=== PATIENT | female | born 1990 | race African-American/Black ===

== ENCOUNTER 2022-03-01 14:50 | Outpatient (CLI) | payer BC | END 2022-03-01 14:51 | disposition home or self-care (01) | LOC: CSHMRI 14:50 | PROVIDERS: ATTEND Orthopaedic Surgery | DX: M23.91 Unspecified internal derangement of right knee (principal); S76.111A Strain of right quadriceps muscle, fascia and tendon, initial encounter; S83.251A Bucket-handle tear of lateral meniscus, current injury, right knee, initial encounter ==